=== PATIENT | female | born 1995 | race Caucasian/White ===

== ENCOUNTER 2017-03-21 23:55 | Emergency (ER) | payer BC, OTHER ==
[~2017-03-21] VITALS: Ht 149.9 cm; Wt 57.1 kg
[~2017-03-21 23:55] MED LIST: NOHOMEMEDS; XULANE PATCH1 EACH TD; ZOFRAN ODT4 MG PO
[2017-03-22 01:13] VITALS: BP 112/61
== END 2017-03-22 01:14 | disposition home or self-care (01) ==
LOC: EME 23:55
DX: S93.602A Unspecified sprain of left foot, initial encounter (principal); X58.XXXA Exposure to other specified factors, initial encounter
CPT/HCPCS: 73630; 99281; 99284

== ENCOUNTER 2018-07-12 20:06 | Emergency (ER) | payer OTHER, BC ==
[~2018-07-12] VITALS: Ht 147.3 cm; Wt 60.6 kg
[2018-07-12 22:27] VITALS: BP 117/85
== END 2018-07-12 22:27 | disposition home or self-care (01) ==
LOC: EME 20:06
PROC: 0HQ1XZZ Repair Face Skin, External Approach (ICD-10-PCS; principal; 2018-07-12)
DX: S01.81XA Laceration without foreign body of other part of head, initial encounter (principal); W22.8XXA Striking against or struck by other objects, initial encounter
CPT/HCPCS: 99281; 99284